=== PATIENT | female | born 1975 | race Caucasian/White ===

== ENCOUNTER → 2023-05-10 08:00 | Outpatient (BNV) | payer BC, SELFPAY | PROVIDERS: Visit Provider Psychiatry & Neurology Psychiatry | DX: F31.81 Bipolar II disorder (principal); F41.1 Generalized anxiety disorder; F41.0 Panic disorder [episodic paroxysmal anxiety]; F43.10 Post-traumatic stress disorder, unspecified; F10.21 Alcohol dependence, in remission | CPT/HCPCS: 90792; 90832; 99213; 99214 ==

== ENCOUNTER 2023-05-17 08:00 | Outpatient (RCR) | payer BC, SELFPAY ==
[2023-04-30 12:56] VITALS: BP 111/75; PULSE 83; TEMP 37.2
[2023-04-30 12:58] VITALS: BMI 27.0
--- NOTE | 2023-04-30 13:42 | PC.ADMIT ---
Patient is a 47 year old female who was referred to [facility] by [facility] where she was admitted d/t increased anxiety with daily panic attacks. She reports her anxiety was so bad that she was having thoughts to jump off the balcony on the 4th floor. She reports she relapsed on ETOH for 1.5 days after being sober for one year drinking 2 bottles of mouthwash. She reports having difficulty leaving her house d/t the anxiety thus she drank mouthwash that was in her home at the time. She reports she went to the ER for help as she couldn't take it anymore . She reports inpatient was helpful however is still struggling with some anxiety and wants some support for all that she has gone through. Also reports unresolved trauma. Patient is alert and oriented x4. Calm and cooperative. Denied SI. Patient given a copy of her safety plan if needed. Medications reconciled with patient and discharge paperwork from [facility]. She reports taking medications as prescribed. Patient is taking PFMLA currently to work on her mental health . She reports many stressors that built up over time including finding out her was cheating on her for a few years and getting , moving into her own apartment in January, seeing the kids every other week, starting a new job in October. She reports she has past trauma and PTSD and has not dealt with it.
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
--- NOTE | 2023-05-01 10:50 | HO.PHP ---
[facility] staff member, Desiree, contacted Jennifer and provided her with the information that her insurance company disclosed around payments. PHP staff member voiced that she is responsible for paying the amount until she reaches her deductible and after she reaches her deductible she is responsible for 35% of the bill. [facility] staff explored with Jennifer if this is something she is still interested in. Jennifer disclosed that she is still interested in attending the program and has no problem covering the amount due. [facility] staff were receptive and assessed safety for the holiday weekend. Jennifer had mentioned that she is safe and is with a family member every day of the week until Saturday. [facility] staff was receptive. eJnnifer presented no concerns around SI,plan or intent.
--- NOTE | 2023-05-01 16:29 | HO.PHP ---
The client's case was reviewed and opened in treatment team. Angelica opened Jennifer's case in teams
--- NOTE | 2023-05-08 08:27 | HO.PHP ---
Pt contacted regarding her voicemail callout for today. Pt stated she woke up with a panic attack and had a hard time trying to come down from it. Stated she was struggling to stop crying and to catch her breath. Tried deep breathing and grounding but states it was ineffective so she took an ativan. Pt states she feels she cannot drive here in her anxious condition and while on ativan. Reports she is safe and she will call crisis if her depression increases and if she experiences any SI. Pt was also encouraged to contact her supports today to avoid isolating and worsening symptoms, pt agreed.
--- NOTE | 2023-05-10 21:22 | HO.PHPPROGNO ---
Subjective Subjective Date of Service: 05/10/23 Reason For Visit: MDD Interim History: Patient seen for follow-up today. No acute issues or concerns. Anxiety remains high, more physical anxiety vs cogntive. Regularly feels nervous, muscle tension, tension in chest and upper body, elevated heart beat, at times jittery. (Her low face/jaw and lips were notably quivering, but she says she was cold sitting in groups. Denies feeling tearful or emotional). Hasn't been sleeping well. She usually falls asleep withina reasonable amount of time, but is waking a couple of times during the night and sometimes unable to fall back asleep. Nightmares occurring only once in a while. She did not have her children over this week and she suspects this is contributing to some sleep disturbance. She takes hydroxyzine for sleep, which is more helpful with onset. She reports mood is okay, denies any helplessness, hopelessness or SI. She has been on clonidine and propranolol in the past. Denies any AE. They were helpful for anxiety, not sure if they were helpful for sleep. We discussed prazosin which she was agreeable to trial. Medication Compliance: Yes Side effects from medications: No Attending Groups: Yes Review of Systems Acute medical concerns: No Mental Status Exam Mental Status Exam Narrative: Alert, oriented, in no acute distress. Casually dressed. Hygiene, grooming intact. Normal gait, no tics/tremors/dyskinesia, no psychomotor agitation or neurovegetative retardation. Calm, cooperative, forthcoming. Well-related. Maintains appropriate eye contact. Mood is depressed. Affect subdued, full range of affect, low reactivity, mood congruent. Speech is normal, regular rate, rhythm, prosody. No latency or pressured speech. Thought process is goal-directed. Thought content relevant to stressors and presentation, no paranoid or delusional content elicited, some future-orientation. Denies SI or HI on inquiry. No evidence of psychosis. Cognition grossly intact. Sensorium clear. Insight fair/good. Judgment intact. Diagnostics Vital Signs (24Hr): BMI result Body Mass Index 27.0 Assessment & Plan Assessment & Plan (1) Post-traumatic stress disorder, unspecified: Status: Acute Code(s): F43.10 - Post-traumatic stress disorder, unspecified (2) Other mixed anxiety disorders: Status: Acute Code(s): F41.3 - Other mixed anxiety disorders (3) Mood disorder: Status: Acute Code(s): F39 - Unspecified mood [affective] disorder (4) Severe alcohol use disorder, in early remission: Status: Acute Code(s): F10.21 - Alcohol dependence, in remission Plan start prazosin 1 mg qHS risks/benefits/side effects reviewed continue other regular medicaitons continue in PHP Patient educated on: diagnosis and medication risk/benefits Informed Consent: understands Reason for contiued partial hosp. stay Substantial Risk for: inability to function, rapid decompensation and med/psych decompensation Certification I certify that partial hospital treatment is medically necessary due to the symptoms and problems resulting from the patient's mental illness and the failure to treat the patient at the partial hospital level of care would likely result in the patient requiring inpatient psychiatric care which could not be prevented at a less intensive level of care. Total time managing care of this patient today __30__ minutes. Discharge Plan Discharge Attending provider: Monie Byers Additional Instructions: Jennifer has an OP therapist Lidia Barnett through [facility], in which she meets with her every Saturday at noon. Jennifer also has a med provider, Jaxon, through [facility], in which her next scheduled appointment is May 21, 2023 at 12:30 or 1 PM. Medications: Continued prazosin 1 mg capsule 1 mg PO BID Qty: 30 0RF No Action olanzapine 10 mg tablet 10 mg PO BEDTIME hydroxyzine HCl 50 mg tablet 50 mg PO TID lorazepam 0.5 mg tablet 0.5 mg PO DAILY PRN (Reason: Anxiety) buspirone 10 mg tablet 10 mg PO TID Stand Alone Forms: Patient Portal Discharge page
--- NOTE | 2023-05-14 19:40 | HO.PHPPROGNO ---
Subjective Subjective Date of Service: 05/15/23 Reason For Visit: MDD Interim History: Patient seen for follow up today. No acute issues or concerns. She is at 1 mg BID of the prazosin, she is not sure she can tell if there's any difference. She is still experiencing body anxiety - she particularly notices it in groups - but denies any adverse effects and is open to further titration. She reports having one really good night sleep over the weekend. Slept a solid 8 hours uninterrupted, which is very unusual for her. She felt encouraged by this but her sleep has since returned to usual delayed onset and frequent waking. She has not had any nightmares recently. She reports her general anxiety is now at a 5 out of 10 in severity which is better than where it was at the start of the program 9 or 10 out of 10 in severity. She has not had any panic attacks in the interim, but definitely panic symptoms. Mood is okay, stable, denies any hopelessness or SI. She is trying to stay organized and motivated. She is looking for paperwork to be filled out by this commercial lines underwriter to get reimbursement for a trip she had planned for and had to cancel. Will plan to increase dose of prazosin to 2 mg tomorrow AM to target daytime nervousness/anxiety. If tolerated, and effective, after 2 days will increase PM dose to 2 mg as well. If no further benefit for sleep, we may consider adding mirtazapine PRN. Alternatively patient may be experiencing sleep disturbance, somatic anxiety secondary to perimenopausal (has been late with periods LMP March) may consider work-up Sleep unchanged/disrupted. Appetite and energy stable. No alcohol or substance use. No alcohol cravings. Med compliant, denies AE. ROS: negative Mental Status Exam Mental Status Exam Narrative: Alert, oriented, in no acute distress. Casually dressed. Hygiene, grooming intact. Normal gait, variable tremulousness due to cold and anxiety, improved near heater - no tics or dyskinesia, no psychomotor agitation or neurovegetative retardation. Calm, cooperative, forthcoming. Well-related. Maintains appropriate eye contact. Mood is anxious, depressed. Affect subdued, full range of affect, low reactivity, mood congruent. Speech is normal, regular rate, rhythm, prosody. No latency or pressured speech. Thought process is goal-directed. Thought content relevant to stressors and presentation, no paranoid or delusional content elicited, some future-orientation. Denies SI or HI on inquiry. No evidence of psychosis. Cognition grossly intact. Sensorium clear. Insight fair/good. Judgment intact. Diagnostics Vital Signs (24Hr): BMI result Body Mass Index 27.0 Assessment & Plan Assessment & Plan (1) Mood disorder: Status: Acute Code(s): F39 - Unspecified mood [affective] disorder (2) Post-traumatic stress disorder, unspecified: Status: Acute Code(s): F43.10 - Post-traumatic stress disorder, unspecified (3) Other mixed anxiety disorders: Status: Acute Code(s): F41.3 - Other mixed anxiety disorders (4) Alcohol use disorder, moderate, in early remission: Status: Acute Code(s): F10.21 - Alcohol dependence, in remission Plan increase prazosin to 3 mg/d (split /) for the next 2 days if tolerated then increase to 2 mg BID will check VS on Thurs patient already on 10 mg olanzapine at HS, will consider adding mirtazapine for sleep advised to take 3 rd dose of buspirone by supper in case this is interfering with sleep we reviewed good sleep hygiene continue other regular medications pending labwork from PCP office done recently - I would like to check if TFTs CBC vitB12 were done also ?perimenopausal effects continue to monitor Certification I certify that partial hospital treatment is medically necessary due to the symptoms and problems resulting from the patient's mental illness and the failure to treat the patient at the partial hospital level of care would likely result in the patient requiring inpatient psychiatric care which could not be prevented at a less intensive level of care. Total time managing care of this patient today ____ minutes. Discharge Plan Discharge Attending provider: Monie Byers Additional Instructions: Jennifer has an OP therapist Lidia Barnett through [facility], in which she meets with her every Saturday at noon. Jennifer also has a med provider, Jaxon, through [facility], in which her next scheduled appointment is May 21, 2023 at 12:30 or 1 PM. Medications: Continued prazosin 1 mg capsule 1 mg PO BID Qty: 30 0RF No Action olanzapine 10 mg tablet 10 mg PO BEDTIME hydroxyzine HCl 50 mg tablet 50 mg PO TID lorazepam 0.5 mg tablet 0.5 mg PO DAILY PRN (Reason: Anxiety) buspirone 10 mg tablet 10 mg PO TID Stand Alone Forms: Patient Portal Discharge page
--- NOTE | 2023-05-17 20:13 | HO.PHPPROGNO ---
Subjective Subjective Date of Service: 05/17/23 Reason For Visit: MDD, JIMENA, alcohol dependence Interim History: Patient seen for follow up today, anticipating discharge at the end of the day. No acute issues or concerns. Jennifer reports mood as good, denies any hopelessness or SI. No issues with anger or irritability. She reports anxiety is much better . No panic symptoms in past few days. Can not recall last panic attacks. She denies any alcohol use, urges or cravings. No substance use issues. Sleep is improved with 2 mg of prazosin. She also feels 2 mg of prazosin qAM (better than 1 mg) for daytime anxiety (nervousness, muscle tension, heart racing). SHe appears calmer, and no notiable shakiness as in previous days on 1 mg). She denies any adverse effects. She has been able to attend to ADLs better, and has been able to get out of the house for longer periods. She was able to get over to the mall to get her nails done at the salon this week which was something she used to regularly do before all the anxiety and depression set in over the past 6 months. She is feeling more optimistic and motivated. We agree to make 1 mg prazosin available to take BID for flexibility, in addition to a script for 2 mg capsule QHS, but if she ultimately settles at 2 mg BID then outpatient provider can prescribe accordingly. Travel reimbursement paperwork was completed and given back to her (copy retained for our records). She also came today with more [facility] paperwork which this provider will complete next week and fax to [phone]. Once completed, paperwork will be mailed to her home at [address] [place] [address] [address], [place] [address]. Medication Compliance: Yes Side effects from medications: No Attending Groups: Yes Review of Systems Acute medical concerns: No Mental Status Exam Mental Status Exam Narrative: Alert, oriented, in no acute distress. Casually dressed. Hygiene, grooming intact. Normal gait. not tremulousness today, no tics or dyskinesia, no psychomotor agitation or neurovegetative retardation. Calm, cooperative, forthcoming. Well-related. Maintains appropriate eye contact. Mood is improved, less anxious, closer to euthymia. Affect subdued, full range of affect, low reactivity, mood congruent. Speech is normal, regular rate, rhythm, prosody. No latency or pressured speech. Thought process is goal-directed. Thought content relevant to stressors and presentation, no paranoid or delusional content elicited, some future-orientation. Denies SI or HI on inquiry. No evidence of psychosis. Cognition grossly intact. Sensorium clear. Insight fair/good. Judgment intact. Diagnostics Vital Signs (24Hr): BMI result Body Mass Index 27.0 Assessment & Plan Assessment & Plan (1) Bipolar II disorder, most recent episode major depressive: Status: Acute Code(s): F31.81 - Bipolar II disorder Assessment and Plan: most recent episode depressed (r/o MDD+h/o mood dysregulation r/t SIMD(alcohol)) (2) Generalized anxiety disorder with panic attacks: Status: Acute Code(s): F41.1 - Generalized anxiety disorder; F41.0 - Panic disorder [episodic paroxysmal anxiety] (3) Post-traumatic stress disorder, unspecified: Status: Acute Code(s): F43.10 - Post-traumatic stress disorder, unspecified (4) Severe alcohol use disorder, in early remission: Status: Acute Code(s): F10.21 - Alcohol dependence, in remission Assessment and Plan: with alcohol-induced mood disorder (in remission) Plan Discharge from [facility] continue regular medications as noted further medication management deferred to outpatient provider - upcoming psych provider appointment on 05/21 refills sent for prazosin 2 mg qhs, prazosin 1 mg BID (take 1-2 caps qAM) MEDICATION LIST: Buspar 10 mg TID olanzapine 10 mg qHS prazosin 1-2 mg qAM prazosin 2 mg qHS hydroxyzine 50 mg PRN anxiety lorazepam 0.5 mg qd PRN Diagnoses at discharge: Bipolar II Disorder, MRE depressive JIMENA PTSD, chronic Alcohol Use Disorder with Alcohol-induced mood disorder, in early remission Patient educated on: diagnosis, medication risk/benefits and substance abuse Informed Consent: understands Reason for contiued partial hosp. stay Substantial Risk for: stable for discharge Certification I certify that partial hospital treatment is medically necessary due to the symptoms and problems resulting from the patient's mental illness and the failure to treat the patient at the partial hospital level of care would likely result in the patient requiring inpatient psychiatric care which could not be prevented at a less intensive level of care. Total time managing care of this patient today ___30_ minutes. Discharge Plan Discharge Attending provider: Monie Byers Additional Instructions: Jennifer has an OP therapist Lidia Barnett through [facility], in which she meets with her every Saturday at noon. Jennifer also has a med provider, Jaxon, through [facility], in which her next scheduled appointment is May 21, 2023 at 12:30 or 1 PM. Medications: New prazosin 2 mg capsule 2 mg PO BEDTIME Qty: 15 0RF prazosin 1 mg capsule 1 mg PO BID Qty: 30 0RF Continued olanzapine 10 mg tablet 10 mg PO BEDTIME hydroxyzine HCl 50 mg tablet 50 mg PO TID buspirone 10 mg tablet 10 mg PO TID prazosin 1 mg capsule 1 mg PO BID Qty: 30 0RF lorazepam 0.5 mg tablet 0.5 mg PO DAILY PRN (Reason: Anxiety) Qty: 8 0RF Stand Alone Forms: Patient Portal Discharge page Patient Education: Prazosin (By mouth), Bipolar Disorder (DC)
== END 2023-05-17 23:59 | disposition home or self-care (01) ==
LOC: HO.PHPA 08:00
PROVIDERS: Visit Provider Psychiatry & Neurology Psychiatry
DX: F31.81 Bipolar II disorder (principal); F41.1 Generalized anxiety disorder; F41.0 Panic disorder [episodic paroxysmal anxiety]; F43.10 Post-traumatic stress disorder, unspecified; F41.3 Other mixed anxiety disorders; F39 Unspecified mood [affective] disorder; F10.21 Alcohol dependence, in remission; Z79.899 Other long term (current) drug therapy
CPT/HCPCS: 90791; 90853

== ENCOUNTER 2023-12-03 08:52 | Outpatient (REF) | payer BC, SELFPAY ==
[2023-12-03 09:07] LABS: MANUAL DIFF FLAG NO
[2023-12-03 09:26] LABS: Basophils Absolute Auto 0.1 X10*3/uL (0.0-0.2); Basophils Percent Auto 0.7 % (0-2); Eosinophils Absolute Auto 0.1 X10*3/uL (0.0-0.4); Eosinophils Percent Auto 0.9 % (0-4); Hematocrit 32.9 % (37.0-47.0); Hemoglobin 10.6 g/dl (12.0-16.0); Imm Gran Abs Auto 0.04 X10*3/uL (0.00-0.03); Imm Gran Pct Auto 0.5 % (0.0-0.4); Lymphocytes Absolute Auto 1.7 X10*3/uL (1.2-4.9); Lymphocytes Percent Auto 22.9 % (20-40); Mean Corpuscular HGB Conc 32.2 g/dl (31.0-35.0); Mean Corpuscular Hemoglobin 27.4 pg (27.0-33.0); Mean Platelet Volume 10.1 fL (9.4-12.3); Monocytes Absolute Auto 0.6 X10*3/uL (0.1-1.2); Monocytes Percent Auto 7.9 % (2-11); Neutrophils Percent Auto 67.1 % (45-73); Platelet Count 415 X10*3/uL (160-400); Red Blood Count 3.87 X10*6/uL (4.20-5.50); Red Cell Distribution Width 15.1 % (11.0-16.0); White Blood Count 7.5 X10*3/uL (4.8-10.8)
[2023-12-03 09:39] LABS: Estimated Average Glucose 103 mg/dL; Hemoglobin A1c % 5.2 % (<6.0)
[2023-12-03 10:06] LABS: Alanine Aminotransferase 19 U/L (0-31); Albumin Level 4.2 g/dL (3.5-5.0); Alkaline Phosphatase 75 U/L (39-117); Anion Gap 10 (12-20); Aspartate Amino Transferase 19 U/L (5-31); Bilirubin Total 0.6 mg/dL (0.0-1.0); Blood Urea Nitrogen 9 mg/dL (9-16); Calcium 9.2 mg/dL (8.4-10.2); Carbon Dioxide 26 mmol/L (22-29); Chloride 109 mmol/L (96-108); Cholesterol 212 mg/dL (<200); Estimated Glomerular Filt Rate > 60; Glucose Fasting 82 mg/dL (60-99); HDL Cholesterol 91 mg/dL (>40); Iron 88 mcg/dL (30-160); LDL Cholesterol Calculated 109 mg/dL (<100); Magnesium 2.2 mg/dL (1.6-2.6); Percent Iron Saturation 20 % (15-50); Potassium 3.6 mmol/L (3.3-5.1); Sodium 141 mmol/L (135-145); Total Iron Binding Capacity 433 mcg/dL (228-428); Total Protein 7.5 g/dL (6.5-8.0); Triglycerides 64 mg/dL (<150); Unsaturated Iron Binding 345 ug/dL
[2023-12-03 10:22] LABS: Ferritin 15 ng/mL (10-250); Free T4 (Free Thyroxine) 0.94 ng/dL (0.71-1.85); Thyroid Stimulating Hormone 2.34 uIU/mL (0.32-4.0); Vitamin D 25-OH Total 20.2 ng/mL (>30)
[2023-12-03 11:01] LABS: Folate 12.1 ng/mL (> or = 4.0); Vitamin B12 711 pg/mL (200-900)
[2023-12-05 16:24] LABS: Immature Retic Fraction 30.1 % (3.0-15.9); Retic HGB Equivalent 27.5 pg (30.0-35.0); Reticulocyte Percent 2.3 % (0.5-1.8); Reticulocytes Absolute 0.091 X10*6/uL (0.026-0.095)
[2023-12-05 16:58] LABS: Lactate Dehydrogenase 208 U/L (122-220)
[2023-12-05 17:59] LABS: Atypical Lymph Absolute Manual 0.1 x10*3/uL; Atypical Lymphs Percent Manual 1 % (0-6); Band Neutrophils Percent 3 % (3-5); Basophils Abs Manual 0.1 X10*3/uL (0.0-0.2); Basophils Percent Manual 1 % (0-2); Eosinophils Absolute Manual 0.1 X10*3/uL (0.0-0.4); Eosinophils Percent Manual 1 % (0-4); Lymphocytes Absolute Manual 1.7 X10*3/uL (1.2-4.9); Lymphocytes Percent Manual 22 % (20-40); Monocytes Absolute Manual 0.8 X10*3/uL (0.1-1.2); Monocytes Percent Manual 10 % (2-11); Neutrophils Absolute Manual 4.9 X10*3/uL (2.0-8.3); Neutrophils Percent Manual 62 % (45-73)
[2023-12-05 18:01] LABS: Polychromasia 1+ (0-2) /OIF; RBC Morphology NOTED
[2023-12-05 18:02] LABS: Platelet Estimate NORMAL (NORMAL); Platelet Morphology Comment NORMAL
== END 2023-12-03 08:53 | disposition home or self-care (01) ==
LOC: HO.LAB 08:52
PROVIDERS: PCP Internal Medicine; Visit Provider Psychiatry & Neurology Psychiatry
DX: F31.81 Bipolar II disorder (principal)
CPT/HCPCS: 36415; 80053; 80061; 82306; 82607; 82728; 82746; 83036; 83540; 83615; 83735; 84439; 84443; 85007; 85025; 85045

== ENCOUNTER 2023-12-04 09:45 | Outpatient (RCR) | payer BC, SELFPAY ==
[2023-11-28 12:16] VITALS: BP 118/78; PULSE 72; RESP 18; TEMP 37.3
[2023-11-28 12:17] VITALS: BMI 28.4
--- NOTE | 2023-11-28 13:04 | PC.ADMIT ---
Patient self presented due to increase depression, anxiety, AH. She reports having a prior hospitalization at [facility] as she was experiencing AVH, stated I saw a whole in the closet, reports she also saw her intellectual property legal assistant in her car It felt real. She reports struggling with what's real and what's not. She reports hearing her neighbor talking on the liang, It's a conversation in my head. She reports symptoms have improved since hospitalization states But I still need help. She reports endorsing passive SI, when asked if she had a plan stated No, reports intermittent thoughts that come and go, when asked to elaborate stated They wont have to deal with me, she also reported thought of not wanting to wake up. She denied having any intentions of wanting to kill self, she reports that she has good support, I can crisis, my friend, my family, she reports crisis number being next to night stand, stated I can reach out for hep if I needed, patient given copy given of safety plan if needed. Patient currently presents A/O X4, mood appears depressed and anxious. Patient thoughts appear clear and logical, she reports improved sleep, reports AH have improved since started on Olanzapine. Medications reconcile with patient and patient pharmacy, she reports taking medications as prescribed with the exception of Prasozin, reports she discontinued it due to increase urination at night Dr. Byers notified
--- NOTE | 2023-11-28 17:46 | HO.IOP ---
Client's case has been opened and reviewed in team meeting.
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
--- NOTE | 2023-12-02 07:30 | HO.IOP ---
IOP Admin, Thu, informed the IOP team that Jennifer will not be in attendance to program today because she has hurt her knee. Thu voiced that Jennifer disclosed no safety concerns and will be here tomorrow.
--- NOTE | 2023-12-04 14:49 | HO.PHP ---
Jennifer came to [facility] staff member during the second group asking to leave for the day due to being tired. PHP staff member assessed any safety concerns. Jennifer reported no SI, plan or intent. Jennifer expressed that she will be in program tomorrow.
--- NOTE | 2023-12-05 15:17 | HO.PHP ---
Jennifer was called at roughly 3:15 pm to check and confirm she will be in tomorrow. Pt called out today due to feeling tired, possibly from medication changes. No safety concerns. Pt is scheduled to discharge tomorrow. A voicemail was left reminding pt of discharge and requesting a callback.
--- NOTE | 2023-12-05 21:46 | PM.EVENT ---
Event Note Date of Service: 12/05/23 Event Note: Patient called out of program today. She had reported to staff some concerns about medication changes causing sedating. The only change was to increase Lamictal from 125 mg to 150 mg/day. This is highly unlikely to cause sedation, especially when patient did not find 125 mg sedating. More likely sedation may be caused by lorazepam, patient is prescribed 1 mg BID. And she noted to have been filling this script in a timely fashion (she had gone through 14 days of medication in 14 days as per [place], and perhaps this is causing her sedation). I was unable to reach her, I left a regarding thoughts of possibly the lorazepam causing her sedation. Otherwise will plan to follow up with the patient tomorrow. Time Spent With Patient Time: Total time managing care of this patient today ____ minutes.
--- NOTE | 2023-12-06 09:40 | PM.EVENT ---
Event Note Date of Service: 12/06/23 Event Note: Patient has been out yesterday and today so was unable to be seen either day. Time Spent With Patient Time: Total time managing care of this patient today ____ minutes.
--- NOTE | 2023-12-06 12:04 | HO.PHP ---
Jennifer did not show up to program on her updated discharge date and did not call the program to notify staff. This t/w reached out and left a voicemail. Shortly after, contact her emergency contact, Gerson Kwok. He called the program stating he had been texting her, and she did not feel well and was not picking up their children today. He expressed some concerns over trying to share custody with her, but he stated that he realizes she needs to do the work. He was able to text her to contact the program. She answered a call from the program prescriber, Monie Gutierrez MD who went over medication regime and assessed for safety. She disclosed she did not want to return to the program, and this t/w also followed up with her in checking for safety concerns. She disclosed no SI, plan, or intent. Staff told her if she felt she needed to return to the program at a later date she could call Thu to reschedule. Jennifer appeared receptive.
== END 2023-12-04 23:59 | disposition home or self-care (01) ==
LOC: HO.IOP 09:45
PROVIDERS: Visit Provider Psychiatry & Neurology Psychiatry
DX: F31.81 Bipolar II disorder (principal); F41.1 Generalized anxiety disorder; F41.0 Panic disorder [episodic paroxysmal anxiety]; F10.90 Alcohol use, unspecified, uncomplicated; Z79.899 Other long term (current) drug therapy
CPT/HCPCS: 90791; S9480